=== PATIENT | female | born 1935 | race Caucasian/White ===

== ENCOUNTER → 2017-01-29 | Emergency (ER) | payer MEDICARE, BC ==
[~2017-01-29] MED LIST: ASMANEX220 MC1 INH; CALCIUM 600 +1 EAC6 PO; CITRUCEL500 MG PO; COZAAR100 MG PO; CRESTOR20 MG PO; EXTRA STRENGTH500 MG PO; HYDROCHLOROTH12.5 MG PO; POTASSIUM CHLO10 MEQ PO; PRILOSEC20 MG PO; TENORMIN25 MG PO; TYLENOL PM EX-1 EACH PO; XARELTO20 MG PO
== END | disposition disaster alternative care site (69) ==
LOC: GAMB 18:02
DX: R55 Syncope and collapse (principal); I48.91 Unspecified atrial fibrillation; J40 Bronchitis, not specified as acute or chronic; R42 Dizziness and giddiness; R23.1 Pallor; R19.7 Diarrhea, unspecified; Z79.899 Other long term (current) drug therapy